=== PATIENT | male | born 1980 | race Caucasian/White ===

== ENCOUNTER 2017-02-15 08:39 | Emergency (ER) | payer MEDICAID, MEDICARE ==
[~2017-02-15] VITALS: Ht 175.3 cm; Wt 88.5 kg
[2017-02-15 09:00] VITALS: BP 109/76
[2017-02-15] MEDS ORDERED: predniSONE 20 MG TABLET PO ONE (09:15)
[2017-02-15] MEDS ORDERED: PROAIR HFA8.5 GM INH (09:18)
[2017-02-15] MEDS ORDERED: PRED50TA PO (09:18)
--- NOTE | 2017-02-15 09:23 | PHYS DOC ---
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 He was sleeping under a business overhang. Somebody saw him walking the street having difficulty breathing and EMS was called. He was having difficulty breathing. EMS gave him an albuterol treatment he feels better now. He needs an inhaler he says. He does have a history of asthma. No fevers no productive sputum. This is his usual asthma exacerbation he states. Currently he is without complaints. Review of Systems Review of Systems Constitutional: Denies fever or chills Eyes: Denies change in visual acuity, redness, or eye pain HENT: Denies nasal congestion or sore throat Respiratory: HPI Cardiovascular: No additional information not addressed in HPI GI: Denies abdominal pain, nausea, vomiting, bloody stools or diarrhea : Denies dysuria or hematuria Musculoskeletal: Denies back pain or joint pain Integument: Denies rash or skin lesions Neurologic: Denies headache, focal weakness or sensory changes Endocrine: Denies polyuria or polydipsia All other systems were reviewed and found to be within normal limits, except as documented in this note. Current Medications Current Medications Current Medications Medications (Trade) Dose Ordered Sig/Cassidy Start Time Stop Time Status Last Admin Dose Admin Prednisone (Prednisone) 60 mg 1X ONCE 02/15/17 09:15 02/15/17 09:18 DC Allergies Allergies Allergies Coded Allergies Type Severity Reaction Last Updated Verified haloperidol Allergy Unknown 02/15/17 Yes Uncoded Allergies Type Severity Reaction Last Updated Verified PSYCH MEDS Allergy Unknown 02/15/17 Physical Exam Physical Exam Constitutional: Well developed, well nourished, no acute distress, non-toxic appearance. HENT: Normocephalic, atraumatic, bilateral external ears normal, oropharynx moist, no oral exudates, nose normal. Eyes: PERRLA, EOMI, conjunctiva normal, no discharge. [ Neck: Normal range of motion, no tenderness, supple, no stridor. Cardiovascular:Heart rate regular rhythm, no murmur Lungs & Thorax: Bilateral breath sounds clear to auscultation Abdomen: Bowel sounds normal, soft, no tenderness, no masses, no pulsatile masses. Skin: Warm, dry, no erythema, no rash. Back: No tenderness, no CVA tenderness. Extremities: No tenderness, no cyanosis, no clubbing, ROM intact, no edema. Neurologic: Alert and oriented X 3, normal motor function, normal sensory function, no focal deficits noted. Psychologic: Affect normal, judgement normal, mood normal. Current Patient Data Vital Signs Vital Signs Date Time Temp Pulse Resp B/P (MAP) Pulse Ox O2 Delivery O2 Flow Rate FiO2 02/15/17 09:00 97.6 82 16 99 Room Air 97.6 EKG EKG [] Radiology/Procedures Radiology/Procedures Chest x-ray not indicated[] Course & Med Decision Making Course & Med Decision Making Pertinent Labs and Imaging studies reviewed. (See chart for details) []Patient without symptoms now. We'll dose with prednisone and give prednisone for 5 days. A prescription for albuterol is also ordered. He is dismissed in stable condition with clear return warnings. Dx: asthma exacerbation lEias Disclaimer Elias Disclaimer This electronic medical record was generated, in whole or in part, using a voice recognition dictation system. Departure Departure Disposition: HOME, SELF-CARE Condition: GOOD Patient Instructions: Asthma, Adult Additional Instructions: Plese call for follow up with a primary care doctor from the list given to you. Scripts Prednisone (PREDNISONE) 50 Mg Tablet 1 TAB PO DAILY, #5 TAB Prov: BENJIE VILLEGAS MD 02/15/17 Albuterol Sulfate (PROAIR HFA INHALER) 8.5 Gm Hfa.aer.ad 1 PUFF INH PRN Q6HRS Y for SHORTNESS OF BREATH for 14 Days, #1 INHALER 0 Refills Prov: BENJIE VILLEGAS MD 02/15/17 BENJIE VILLEGAS MD Feb 15, 2017 09:23
== END 2017-02-15 09:34 | disposition home or self-care (01) ==
LOC: ER 08:39
DX: J45.901 Unspecified asthma with (acute) exacerbation (principal)
CPT/HCPCS: 99283; J7512